=== PATIENT | male | born 1960 | race Caucasian/White ===

== ENCOUNTER → 2016-06-18 | Outpatient (CLI) | payer SELFPAY ==
[2016-06-18 19:07] LABS: ALANINE AMINOTRANSFERASE 36 U/L (21-72); ALKALINE PHOSPHATASE 55 U/L (38-126); ASPARTATE AMINO TRANSFERASE 24 U/L (17-59); BLOOD UREA NITROGEN 18 mg/dL (7-20); CREATININE RESULT 0.77 mg/dL (0.52-1.25)
== END ==
LOC: OD 17:38
PROVIDERS: ATTEND Student in an Organized Health Care Education/Training Program
DX: Z79.1 Long term (current) use of non-steroidal anti-inflammatories (NSAID) (principal); Z79.891 Long term (current) use of opiate analgesic
CPT/HCPCS: 36415; 82565; 82977; 84075; 84450; 84460; 84520

== ENCOUNTER → 2017-04-13 | Outpatient (CLI) | payer SELFPAY ==
--- NOTE | 2017-04-14 06:48 | EKG REPORT ---
SEVERITY:- ABNORMAL ECG - SINUS RHYTHM INCOMPLETE LEFT BUNDLE BRANCH BLOCK LEFT VENTRICULAR HYPERTROPHY : Confirmed by: Gaurav Foote MD 14-Apr-2017 06:47:16
== END ==
LOC: OD 16:57
PROVIDERS: ATTEND Physician Assistant
DX: Z79.891 Long term (current) use of opiate analgesic (principal)
CPT/HCPCS: 36415; 80358; 93005; 93010

== ENCOUNTER → 2018-06-08 | Outpatient (CLI) | payer SELFPAY ==
--- NOTE | 2018-06-09 01:30 | EKG REPORT ---
SEVERITY:- ABNORMAL ECG - SINUS RHYTHM NONSPECIFIC IVCD WITH LAD LVH WITH SECONDARY REPOLARIZATION ABNORMALITY : Confirmed by: Columba Gleason MD 09-Jun-2018 01:30:35
== END ==
LOC: OD 16:51
PROVIDERS: ATTEND Physician Assistant
DX: Z79.891 Long term (current) use of opiate analgesic (principal)
CPT/HCPCS: 36415; 80358; 93005; 93010

== ENCOUNTER 2018-11-21 08:08 | Inpatient (IN) | payer SELFPAY ==
[2018-11-21] MEDS ORDERED: IPRATROPIUM/ALBUTEROL 0.5-2.5 MG/3 ML AMPUL NEB ONE (08:45)
[2018-11-21] MEDS ORDERED: METHYLPREDNISOLONE INJ 125 MG/2 ML SDV IV ONE (08:45)
[2018-11-21] MEDS ORDERED: MAGNESIUM SULFATE/D5W 1 GM/100 ML RTUPB IV ONE ×2 (08:45)
[2018-11-21] MEDS ORDERED: CLONIDINE HCL 0.1 MG TABLET PO ONE (08:46)
--- NOTE | 2018-11-21 08:49 | ER Document Report ---
ED General - General Chief Complaint: Breathing Difficulty Stated Complaint: DIFFICULTY BREATHING TRAVEL OUTSIDE OF THE [place] IN LAST 30 DAYS: No - HPI Notes: Patient is a 58-year-old male with history of tobacco abuse who presents complaining of feeling short of breath and having chest heaviness constantly for the past 3 weeks. Patient states that does not matter if he was sitting or walking. He otherwise has been able to eat and drink without difficulty. He is urinating normally and having normal bowel movements. He does not have any inhalers or other medications at home that he takes daily. Patient has been aware that his blood pressure has been a little bit high, but he is not on any medicines for it. Patient has noticed some more swelling to his right leg than his left leg, but usually does have some swelling in his legs bilaterally. Denies any prolonged immobilization, distance travel, recent surgery/trauma, personal cancer history, hormone use, or previous DVT/PE. Denies any headache, fever, neck pain, URI, sore throat, palpitations, syncope, cough, abdominal pain, nausea/vomiting/diarrhea, urinary retention, dysuria, hematuria, back pain, or rash. - Related Data Allergies/Adverse Reactions: No Known Allergies Allergy (Verified 11/21/18 08:13) Past Medical History - Social History Smoking Status: Current Every Day Smoker Chew tobacco use (# tins/day): No Frequency of alcohol use: Occasional Drug Abuse: None Family History: Reviewed & Not Pertinent Patient has suicidal ideation: No Patient has homicidal ideation: No Renal/ Medical History: Denies: Hx Peritoneal Dialysis Review of Systems - Review of Systems -: Yes All other systems reviewed and negative Physical Exam - Vital signs Vitals: Temp Pulse Resp BP Pulse Ox 97.4 F 98 20 191/108 H 100 11/21/18 08:12 11/21/18 08:12 11/21/18 08:12 11/21/18 08:12 11/21/18 08:12 - Notes Notes: PHYSICAL EXAMINATION: GENERAL: Well-appearing, well-nourished and in no acute distress. HEAD: Atraumatic, normocephalic. EYES: Pupils equal round and reactive to light, extraocular movements intact, sclera anicteric, conjunctiva are normal. ENT: Nares patent and without discharge. oropharynx clear without exudates. No tonsilar hypertrophy or erythema. Moist mucous membranes. NECK: Normal range of motion, supple without lymphadenopathy LUNGS: wheezing b/l, no retractions HEART: Regular rate and rhythm without murmurs, rubs, gallops. ABDOMEN: Soft, nontender, nondistended abdomen. No guarding, no rebound. Normal bowel sounds present. No CVA tenderness bilaterally. Musculoskeletal: FROM to passive/active. Strength 5+/5. Extremities: 1-2+ pitting edema RLE, trace to 1+ LLE. Peripheral pulses 2+. Capillary refill less than 3 seconds. NEUROLOGICAL: Normal speech, normal gait. PSYCH: Normal mood, normal affect. SKIN: Warm, Dry, normal turgor, no rashes or lesions noted. Course - Re-evaluation Re-evalutation: 11/21/18 10:[address] Jauregui: We will obtain an ABG. Doppler being performed now. He is showing acute CHF with pulm vasc congestion and elevated BNP. We will place him on a nitro drip and place on Bipap. Pt was already given Lasix 20mg IV and breathing treatments as well. 11/21/18 11:44 Doppler negative. ABG resulted. Will call hospitalist for admission. 11/21/18 11:[address] Carlos who will accept pt and come eval the patient to help determine best location to admit to. - Vital Signs Vital signs: Temp Pulse Resp BP Pulse Ox 97.5 F 98 19 171/104 H 99 11/21/18 10:01 11/21/18 08:12 11/21/18 14:01 11/21/18 14:01 11/21/18 14:01 - Laboratory Result Diagrams: 11/21/18 09:40 11/21/18 09:40 Laboratory results interpreted by me: 11/21/18 11/21/18 11/21/18 09:40 09:40 09:40 RBC 3.99 L Hgb 12.7 L RDW 14.1 H Basophils % 2.3 H D-Dimer 1.08 H ABG pH ABG HCO3 ABG Total CO2 NT-Pro-B Natriuret Pep 5250 H 11/21/18 11:30 RBC Hgb RDW Basophils % D-Dimer ABG pH 7.47 H ABG HCO3 28.4 H ABG Total CO2 29.6 H NT-Pro-B Natriuret Pep Discharge - Discharge Clinical Impression: CHF exacerbation Qualifiers: Heart failure type: unspecified Qualified Code(s): I50.9 - Heart failure, unspecified Condition: Stable Disposition: ADMITTED INPATIENT Admitting Provider: Dr. Carlos Unit Admitted: [facility]
--- NOTE | 2018-11-21 09:10 | RADIOLOGY REPORT (SQ) ---
EXAM DESCRIPTION: CHEST SINGLE VIEW COMPLETED DATE/TIME: 11/21/2018 9:02 am REASON FOR STUDY: SOB COMPARISON: None. EXAM PARAMETERS: NUMBER OF VIEWS: One view. TECHNIQUE: Single frontal radiographic view of the chest acquired. RADIATION DOSE: NA LIMITATIONS: None. FINDINGS: LUNGS AND PLEURA: Basilar opacities. Vikas B-lines. MEDIASTINUM AND HILAR STRUCTURES: No masses. Contour normal. HEART AND VASCULAR STRUCTURES: Heart enlarged. BONES: No acute findings. HARDWARE: None in the chest. OTHER: No other significant finding. IMPRESSION: Congestive failure with interstitial pulmonary edema. TECHNICAL DOCUMENTATION: JOB ID: [id number] [employer]- All Rights Reserved Reading location - IP/workstation name: [email or web address]
[2018-11-21] MEDS ORDERED: FUROSEMIDE INJ/PF 20 MG/2 ML SDV IV ONE (09:18)
[2018-11-21 09:48] LABS: ABSOLUTE BASOPHILS # (AUTO) 0.1 10^3/uL (0.0-0.2); ABSOLUTE EOSINOPHILS # (AUTO) 0.1 10^3/uL (0.0-0.6); ABSOLUTE LYMPHOCYTES (AUTO) 1.1 10^3/uL (0.5-4.7); ABSOLUTE MONOCYTES (AUTO) 0.4 10^3/uL (0.1-1.4); ABSOLUTE NEUT (AUTO) 3.5 10^3/uL (1.7-8.2); BASOPHILS % (AUTO) 2.3 % (0-2); EOSINOPHILS % (AUTO) 1.8 % (0-6); HEMOGLOBIN 12.7 g/dL (13.5-17.0); LYMPHOCYTES % (AUTO) 21.5 % (13-45); MEAN CORPUSCULAR HEMOGLOBIN 31.7 pg (27.0-33.4); MEAN CORPUSCULAR HGB CONC 33.3 g/dL (32.0-36.0); MEAN CORPUSCULAR VOLUME 95 fl (80-97); MONOCYTES % (AUTO) 6.9 % (3-13); PLATELET COUNT 189 10^3/uL (150-450); RED BLOOD COUNT 3.99 10^6/uL (4.35-5.55); RED CELL DISTRIBUTION WIDTH 14.1 % (11.5-14.0); SEGMENTED NEUTROPHILS % (AUTO) 67.5 % (42-78); TOTAL CELLS COUNTED % (AUTO) 100 %; WHITE BLOOD COUNT 5.2 10^3/uL (4.0-10.5)
[2018-11-21 09:52] LABS: INTERNATIONAL RATION (INR) 1.06; PROTHROMBIN TIME 13.8 SEC (11.4-15.4)
[2018-11-21 10:07] LABS: ALBUMIN 3.8 g/dL (3.5-5.0); ALKALINE PHOSPHATASE 107 U/L (38-126); ANION GAP 6 (5-19); ASPARTATE AMINO TRANSFERASE 34 U/L (17-59); BILIRUBIN,DIRECT 0.2 mg/dL (0.0-0.4); BILIRUBIN,TOTAL 0.6 mg/dL (0.2-1.3); BLOOD UREA NITROGEN 11 mg/dL (7-20); CALCIUM 9.1 mg/dL (8.4-10.2); CARBON DIOXIDE 30 mmol/L (22-30); CHLORIDE 102 mmol/L (98-107); GLUCOSE 96 mg/dL (75-110); POTASSIUM 4.1 mmol/L (3.6-5.0); TOTAL PROTEIN 6.5 g/dL (6.3-8.2)
[2018-11-21 10:21] LABS: TROPONIN I 0.057 ng/mL
[2018-11-21] MEDS ORDERED: NITROGLYCERIN/D5W 50 MG/250 ML RTUINJ IV PRN (10:51)
[2018-11-21 11:42] LABS: ARTERIAL BLOOD BASE EXCESS 4.4 mmol/L; ARTERIAL BLOOD FIO2 ROOM AIR; ARTERIAL BLOOD H2CO3 1.21 mmol/L (1.05-1.35); ARTERIAL BLOOD HCO3 28.4 mmol/L (20-24); ARTERIAL BLOOD O2 SATURATION 96.6 % (94-98); ARTERIAL BLOOD PCO2 40.1 mmHg (35-45); ARTERIAL BLOOD PH 7.47 (7.35-7.45); ARTERIAL BLOOD PO2 81.7 mmHg (80-100); ARTERIAL BLOOD TOTAL CO2 29.6 mmol/L (23-27)
--- NOTE | 2018-11-21 11:42 | EKG REPORT ---
SEVERITY:- ABNORMAL ECG - SINUS RHYTHM NONSPECIFIC IVCD WITH LAD LVH WITH SECONDARY REPOLARIZATION ABNORMALITY : Confirmed by: Usha Peacock 21-Nov-2018 11:40:49
[2018-11-21] MEDS ORDERED: ACETAMINOPHEN 325 MG TABLET PO PRN (13:24)
[2018-11-21] MEDS ORDERED: ONDANSETRON HCL INJ/PF 4 MG/2 ML SDV IV PRN (13:24)
[2018-11-21] MEDS ORDERED: LEVALBUTEROL HCL NEB 1.25 MG/3 ML AMPUL NEB PRN (13:24)
[2018-11-21] MEDS ORDERED: HYDRALAZINE HCL INJ/PF 20 MG/1 ML SDV IV PRN (13:24)
--- NOTE | 2018-11-21 13:55 | XCELERA REPORT ---
[address] [place] [facility] [address] Lower Extremity Venous Evaluation Procedure: Color flow and duplex imaging of the veins of the right lower extremity as well as the left Common Femoral vein. Right Sided Venous Evaluation Normal vessel filling wall to wall, compression and augmentation as well as Colour flow down to the infrageniculate veins. Left Sided Venous Evaluation The left common femoral vein is fully compressible. Spontaneous and phasic flow is present in the left common femoral vein. Interpretation Summary No duplex evidence of DVT or obstruction in the right lower extremity nor in the left Common Femoral vein. Name: UBALDO ZAMORA Felipe Age: 58 yrs Gender: Male : 1960 Patient Status: Emergency Patient Location: ER Study Date: 11/21/2018 11:01 AM Reason For Study: Rt LE edema Ordering Physician: INGRID QUINTANILLA Performed By: Mary Bailey : INGRID QUINTANILLA > Vineet Morales
[2018-11-21] MEDS: METOPROLOL TARTRATE 25 MG TABLET PO SCH ×2 (14:25→22:02)
[2018-11-21] MEDS: HEPARIN SOD (PORCINE) 5,000 UNIT/ML 1 ML VIAL SUBCUT SCH ×2 (14:28→22:01)
[2018-11-21] MEDS ORDERED: FUROSEMIDE INJ/PF 40 MG/4 ML SDV IV SCH (14:53)
--- NOTE | 2018-11-21 15:00 | PDOC H&P ---
History of Present Illness Admission Date/PCP: None Patient complains of: Shortness of breath History of Present Illness: UBALDO ZAMORA is a 58 year old male no diagnosed past medical history who presented to the ER complaining of shortness of breath for the last 3 weeks which has been progressively worsening. Patient states that it started with initially having shortness of breath with exertion while he was working but then gradually developed to shortness of breath while he is at rest. States that at nighttime he can even lay flat because it feels like he is drowning. States that he has to stand up or sit up on the bed so he can sleep. States that for the last week he has been sitting up on his bed propped up so he can sleep. States that also when he hangs his legs down he gets swelling of the feet. States that it was worse this morning but better now as he has it up on the bed. He denies chest pain, abdominal pain, nausea/vomiting, dizziness, blurry vision or lightheadedness. States that this morning he woke up really early not feeling well and just having progressive shortness of breath and then decided to drive to the hospital to have his shortness of breath evaluated. States currently he is on methadone and oxycodone only. States that he takes it because of his chronic back pain-states that he takes 20 mg of methadone 3 times a day and 20 mg of oxycodone 4 times a day. He tells me that he has not seen a doctor in the last 10 years. States that for the last 9 months he has checked his blood pressure on his own and it has been in the 170s or higher but he has not followed up with the doctor. States that he is tried to take care of it himself by taking [id number]-jzcgudf supplements-he does not know the names of it. He also admits to smoking 2 packs/day for over 40 years. He also states that he drinks wine at night because someone told him that it is good for the heart. He denies any illicit drug use. Past Medical History Medical History: None - None that he knows of Social History Information Source: Patient Lives with: Spouse/Significant other Smoking Status: Current Every Day Smoker - Advance Directive Resuscitation Status: Full Code Surrogate healthcare decision maker:: -Lupe Cohen Family History Family History: Reviewed & Not Pertinent, CAD - Sister had an NM at the age of 50s Parental Family History Reviewed: Yes Children Family History Reviewed: Unknown Sibling(s) Family History Reviewed.: Yes Medication/Allergy Home Medications: Methadone HCl [Dolophine 10 Mg Tablet] 20 mg PO TID 11/21/18 Oxycodone HCl 20 mg PO QID 11/21/18 Allergies/Adverse Reactions: No Known Allergies Allergy (Verified 11/21/18 08:13) Review of Systems All systems: reviewed and no additional remarkable complaints except as stated Constitutional: ABSENT: chills, fever(s) Nose, Mouth, and Throat: ABSENT: sore throat Cardiovascular: PRESENT: edema Gastrointestinal: ABSENT: abdominal pain Genitourinary: ABSENT: dysuria Physical Exam Vital Signs: Temp Pulse Resp BP Pulse Ox 97.5 F 98 11 L 164/102 H 96 11/21/18 10:01 11/21/18 08:12 11/21/18 11:11 11/21/18 11:11 11/21/18 11:11 Intake & Output 11/20/18 11/21/18 11/22/18 06:59 06:59 06:59 Intake Total 100 Output Total 1355 Balance -1255 Weight 169 lb 12.095 oz General appearance: PRESENT: no acute distress Head exam: PRESENT: atraumatic, normocephalic Eye exam: PRESENT: EOMI. ABSENT: scleral icterus Ear exam: PRESENT: normal external ear exam Mouth exam: PRESENT: moist Neck exam: ABSENT: tracheal deviation Respiratory exam: PRESENT: clear to auscultation johann, symmetrical Cardiovascular exam: PRESENT: +S1, +S2 Pulses: PRESENT: +1 pedal pulses bilateral GI/Abdominal exam: PRESENT: normal bowel sounds, soft. ABSENT: tenderness Extremities exam: PRESENT: pedal edema, +1 edema - b/l LE edema Neurological exam: PRESENT: alert, awake, oriented to person, oriented to place, oriented to time, CN II-XII grossly intact Skin exam: PRESENT: dry, warm Results Laboratory Results: 11/21/18 09:40 11/21/18 09:40 11/21/18 11/21/18 11/21/18 09:40 09:40 11:30 WBC 5.2 RBC 3.99 L Hgb 12.7 L Hct 38.0 MCV 95 MCH 31.7 MCHC 33.3 RDW 14.1 H Plt Count 189 Seg Neutrophils % 67.5 Lymphocytes % 21.5 Monocytes % 6.9 Eosinophils % 1.8 Basophils % 2.3 H Absolute Neutrophils 3.5 Absolute Lymphocytes 1.1 Absolute Monocytes 0.4 Absolute Eosinophils 0.1 Absolute Basophils 0.1 Carbonic Acid 1.21 HCO3/H2CO3 Ratio 23:1 ABG pH 7.47 H ABG pCO2 40.1 ABG pO2 81.7 ABG HCO3 28.4 H ABG O2 Saturation 96.6 ABG Base Excess 4.4 FiO2 ROOM AIR Sodium 138.1 Potassium 4.1 Chloride 102 Carbon Dioxide 30 Anion Gap 6 BUN 11 Creatinine 0.76 Est GFR ( Amer) > 60 Est GFR (Non-Af Amer) > 60 Glucose 96 Calcium 9.1 Total Bilirubin 0.6 AST 34 Alkaline Phosphatase 107 Total Protein 6.5 Albumin 3.8 11/21/18 09:40 Troponin I 0.057 NT-Pro-B Natriuret Pep 5250 H Impressions: Chest X-Ray 11/21/18 08:43 IMPRESSION: Congestive failure with interstitial pulmonary edema. Status: Image reviewed by me Assessment and Plan - Diagnosis (1) New onset of congestive heart failure Is this a current diagnosis for this admission?: Yes (2) Hypertensive urgency Is this a current diagnosis for this admission?: Yes (3) Tobacco abuse Is this a current diagnosis for this admission?: Yes (4) Elevated BP without diagnosis of hypertension Is this a current diagnosis for this admission?: Yes (5) Elevated troponin Is this a current diagnosis for this admission?: Yes - Time Time Spent with patient: 35 or more minutes - Plan Summary Plan Summary: 58-year-old male with past medical history of just chronic pain who presented to the ED complaining of shortness of breath for 3 weeks was found to have new onset CHF and hypertensive urgency. New onset CHF-chest x-ray shows pulmonary edema, elevated BNP, lower extremity edema, orthopnea-most likely patient has new onset CHF with no prior history-we will order an echocardiogram to evaluate his heart function. He is Lasix keenan so we will try him on 20 mg IV twice daily. He did get a small dose of 20 mg IV Lasix in the ED. Monitor I's and O's and daily weights. In the ED he did get duplex of lower extremity to rule out DVT and it was negative. Due to his shortness of breath I will go ahead and draw a d-dimer to rule out PE. If it is positive then will consider CTA chest. Hypertensive urgency-upon arrival his blood pressure systolic was greater than 180 and diastolic greater than 120-started on nitroglycerin drip-we will continue per protocol, start on metoprolol 12-1/2 mg and hydralazine IV as needed. He also told me that he has checked his blood pressure at home for the last 9 months or more and it has been greater than 170 systolic but he has not followed up with anybody. [id number]-dzz plan above. Check lipid panel, TSH and A1c. Elevated troponin-most likely secondary to his hypertensive urgency and CHF-most likely demand mismatch-we will trend-no changes on EKG noted. Tobacco abuse-2 pack/day for more than 40 years history-most likely he has COPD- counseled him on cessation. Chronic pain-currently he is on methadone and oxycodone I am not sure why he is getting this from-we will continue with his methadone and oxycodone-med rec has not been completed by pharmacy we will restart his medicine once ready.. Disposition-admit to IMCU on nitroglycerin drip-most likely can be discharged home when his blood pressure and CHF has been addressed
--- NOTE | 2018-11-21 15:59 | ADVANCED CARE ---
- Diagnosis (1) New onset of congestive heart failure Diagnosis Current: Yes (2) Hypertensive urgency Diagnosis Current: Yes (3) Tobacco abuse Diagnosis Current: Yes (4) Elevated BP without diagnosis of hypertension Diagnosis Current: Yes (5) Elevated troponin Diagnosis Current: Yes (6) Chronic back pain Diagnosis Current: Yes Resuscitation Status: Full Code Discussion: Spoke with patient at bedside regarding all his multiple comorbidities as stated above. Discussed about CODE STATUS-full versus partial versus DNR. I explained to patient what they between-I even went over different scenarios and given his options what he would like to choose. After further discussion about different scenarios and options he decided that he would like to be a full CODE STATUS. He also tells me that if something should happen then his -Lupe Cohen- would be the surrogate decision maker. I answered all his questions and explained everything thoroughly. Time Spent: >17 minutes
[2018-11-21] MEDS: FUROSEMIDE INJ/PF 20 MG/2 ML SDV IV SCH (17:05)
[2018-11-21] MEDS: DOCUSATE SODIUM 100 MG CAPSULE PO SCH (17:05)
[2018-11-21] MEDS ORDERED: OXYCODONE HCL IR 5 MG TABLET PO ONE (19:00)
[2018-11-21] MEDS ORDERED: NICOTINE 21 MG/24 HR PATCH.TD24 TD ONE (19:15)
[2018-11-21] MEDS: FAMOTIDINE 20 MG TABLET PO SCH (22:01)
[2018-11-21] MEDS: METHADONE HCL 10 MG TABLET PO SCH (22:01)
[2018-11-22] MEDS: OXYCODONE HCL IR 5 MG TABLET PO SCH ×4 (00:07→17:43)
[2018-11-22 04:26] LABS: ANION GAP 7 (5-19); BLOOD UREA NITROGEN 19 mg/dL (7-20); CARBON DIOXIDE 31 mmol/L (22-30); CHLORIDE 100 mmol/L (98-107); CHOLESTEROL 150.85 mg/dL (0-200); GLUCOSE 114 mg/dL (75-110); TRIGLYCERIDES 50 mg/dL (<150)
[2018-11-22 04:34] LABS: ABSOLUTE MONOCYTES (AUTO) 0.4 10^3/uL (0.1-1.4); ABSOLUTE NEUT (AUTO) 4.1 10^3/uL (1.7-8.2); BASOPHILS % (AUTO) 0.6 % (0-2); HEMATOCRIT 40.6 % (37.9-51.0); HEMOGLOBIN 13.6 g/dL (13.5-17.0); LYMPHOCYTES % (AUTO) 17.7 % (13-45); MEAN CORPUSCULAR HEMOGLOBIN 31.8 pg (27.0-33.4); MEAN CORPUSCULAR HGB CONC 33.5 g/dL (32.0-36.0); MEAN CORPUSCULAR VOLUME 95 fl (80-97); MONOCYTES % (AUTO) 7.6 % (3-13); PLATELET COUNT 209 10^3/uL (150-450); RED BLOOD COUNT 4.26 10^6/uL (4.35-5.55); RED CELL DISTRIBUTION WIDTH 14.3 % (11.5-14.0); SEGMENTED NEUTROPHILS % (AUTO) 74.1 % (42-78); TOTAL CELLS COUNTED % (AUTO) 100 %; WHITE BLOOD COUNT 5.5 10^3/uL (4.0-10.5)
[2018-11-22 04:37] LABS: DIRECT LDL 100 mg/dL (<100)
[2018-11-22] MEDS: METHADONE HCL 10 MG TABLET PO SCH ×3 (05:24→21:52)
[2018-11-22] MEDS: FUROSEMIDE INJ/PF 20 MG/2 ML SDV IV SCH (05:24)
[2018-11-22] MEDS: HEPARIN SOD (PORCINE) 5,000 UNIT/ML 1 ML VIAL SUBCUT SCH ×3 (05:25→21:52)
--- NOTE | 2018-11-22 07:01 | EKG REPORT ---
SEVERITY:- ABNORMAL ECG - SINUS RHYTHM LEFT ANTERIOR FASCICULAR BLOCK PROBABLE LEFT VENTRICULAR HYPERTROPHY : Confirmed by: Usha Peacock 22-Nov-2018 07:00:41
[2018-11-22] MEDS ORDERED: AMLODIPINE BESYLATE 5 MG TABLET PO SCH (10:00)
[2018-11-22] MEDS: AMLODIPINE BESYLATE 5 MG TABLET PO SCH (11:01)
[2018-11-22] MEDS: NICOTINE 21 MG/24 HR PATCH.TD24 TD SCH (11:02)
[2018-11-22] MEDS: METOPROLOL TARTRATE 25 MG TABLET PO SCH ×2 (11:02→21:53)
[2018-11-22] MEDS: FAMOTIDINE 20 MG TABLET PO SCH ×2 (11:02→21:52)
[2018-11-22] MEDS: DOCUSATE SODIUM 100 MG CAPSULE PO SCH ×2 (11:02→17:44)
--- NOTE | 2018-11-22 16:02 | PDOC PROGRESS REPORT ---
Subjective Progress Note for:: 11/22/18 - imcu Subjective:: Seen on rounds this morning. He was sitting on the chair having breakfast. He tells me that he is feeling fine. We discussed again about his blood pressure a nd the fact that he needs to be on medicine. We also discussed about quitting tobacco and he states that he understands and he is not tried. Nurses in the room with me. He denies any chest pain, shortness of breath, abdominal pain, nausea/vomiting or dizziness. Reason For Visit: HYPERTENSIVE URGENCY Physical Exam Vital Signs: Temp Pulse Resp BP Pulse Ox 97.4 F 73 16 118/81 100 11/22/18 11:30 11/22/18 14:00 11/22/18 11:30 11/22/18 11:30 11/22/18 11:30 Intake & Output 11/21/18 11/22/18 11/23/18 06:59 06:59 06:59 Intake Total 398 232 Output Total 4055 0 Balance -3657 232 Weight 140 lb 3.424 oz General appearance: PRESENT: no acute distress Head exam: PRESENT: atraumatic, normocephalic Eye exam: PRESENT: EOMI. ABSENT: scleral icterus Ear exam: PRESENT: normal external ear exam Mouth exam: PRESENT: moist Neck exam: ABSENT: tracheal deviation Respiratory exam: PRESENT: clear to auscultation johann, symmetrical Cardiovascular exam: PRESENT: +S1, +S2 GI/Abdominal exam: PRESENT: normal bowel sounds, soft. ABSENT: tenderness Extremities exam: PRESENT: pedal edema - trace Neurological exam: PRESENT: alert, awake, oriented to person, oriented to place, oriented to time, CN II-XII grossly intact Skin exam: PRESENT: dry, warm Results Laboratory Results: 11/22/18 03:59 11/22/18 03:59 11/22/18 11/22/18 11/22/18 03:59 03:59 03:59 WBC 5.5 RBC 4.26 L Hgb 13.6 Hct 40.6 MCV 95 MCH 31.8 MCHC 33.5 RDW 14.3 H Plt Count 209 Seg Neutrophils % 74.1 Lymphocytes % 17.7 Monocytes % 7.6 Eosinophils % 0.0 Basophils % 0.6 Absolute Neutrophils 4.1 Absolute Lymphocytes 1.0 Absolute Monocytes 0.4 Absolute Eosinophils 0.0 Absolute Basophils 0.0 Sodium 138.2 Potassium 4.0 Chloride 100 Carbon Dioxide 31 H Anion Gap 7 BUN 19 Creatinine 0.82 Est GFR ( Amer) > 60 Est GFR (Non-Af Amer) > 60 Glucose 114 H Calcium 9.0 Magnesium 1.9 Triglycerides 50 Cholesterol 150.85 LDL Cholesterol Direct 100 VLDL Cholesterol 10.0 HDL Cholesterol 60 TSH 0.92 11/21/18 11/21/18 11/21/18 09:40 15:20 21:45 Troponin I 0.057 0.059 0.051 NT-Pro-B Natriuret Pep 5250 H 11/22/18 03:59 Troponin I 0.067 NT-Pro-B Natriuret Pep Impressions: Chest X-Ray 11/21/18 08:43 IMPRESSION: Congestive failure with interstitial pulmonary edema. Assessment and Plan - Diagnosis (1) New onset of congestive heart failure Is this a current diagnosis for this admission?: Yes (2) Hypertensive urgency Is this a current diagnosis for this admission?: Yes (3) Tobacco abuse Is this a current diagnosis for this admission?: Yes (4) Elevated BP without diagnosis of hypertension Is this a current diagnosis for this admission?: Yes (5) Elevated troponin Is this a current diagnosis for this admission?: Yes - Plan Summary Plan Summary: 58-year-old male with past medical history of just chronic pain who presented to the ED complaining of shortness of breath for 3 weeks was found to have new onset CHF and hypertensive urgency. New onset CHF-chest x-ray shows pulmonary edema, elevated BNP, lower extremity edema, orthopnea-most likely patient has new onset CHF with no prior history- echocardiogram is pending. I will cut back his Lasix to 40 mg daily from tomorrow. I did draw a d-dimer on him yesterday and it was 1.08. Given the fact that he is feeling better clinically and he has urine output of greater other than 3.5 L I think this is more congestive heart failure than any pulmonary embolism. My clinical suspicion for PE is low as he is improving. Continue monitor I's and O's and daily weights Hypertensive urgency-this morning he was still on the nitroglycerin drip at 10- spoke with nursing about turning it down-he was added metoprolol 12-1/2 twice daily and this morning I have also added Norvasc 5 mg daily. Vliewtxrxdas-[id number]-obj plan above. lipid panel, TSH and A1c came back all within normal limits Elevated troponin-most likely secondary to his hypertensive urgency and CHF-most likely demand mismatch-no EKG changes-troponin was 0.067 after trending 3 times- he has no complaints of chest pain and his shortness of breath has improved significantly. Echocardiogram is pending. I do not think this is cardiac and most likely just a demand mismatch. Tobacco abuse-2 pack/day for more than 40 years history-most likely he has COPD- counseled him on cessation. Chronic pain-currently he is on methadone and oxycodone, we will continue with his methadone and oxycodone
[2018-11-23] MEDS: OXYCODONE HCL IR 5 MG TABLET PO SCH ×4 (00:45→18:50)
[2018-11-23] MEDS: METHADONE HCL 10 MG TABLET PO SCH ×3 (05:18→21:45)
[2018-11-23] MEDS: HEPARIN SOD (PORCINE) 5,000 UNIT/ML 1 ML VIAL SUBCUT SCH ×3 (05:19→21:45)
--- NOTE | 2018-11-23 08:33 | RADIOLOGY REPORT (SQ) ---
EXAM DESCRIPTION: CHEST SINGLE VIEW COMPLETED DATE/TIME: 11/23/2018 8:11 am REASON FOR STUDY: CHF follow up COMPARISON: 2018 NUMBER OF VIEWS: One view. TECHNIQUE: Single frontal radiographic view of the chest acquired. LIMITATIONS: None. FINDINGS: LUNGS AND PLEURA: Aeration is improved bilaterally. MEDIASTINUM AND HILAR STRUCTURES: No masses. Contour normal. HEART AND VASCULAR STRUCTURES: Heart remains enlarged with mild central vascular prominence. Mild in terstitial edema remains but is significantly improved. BONES: No acute findings. HARDWARE: None in the chest. OTHER: No other significant finding. IMPRESSION: Cardiomegaly and mild interstitial edema improved from prior study. TECHNICAL DOCUMENTATION: JOB ID: [id number] [employer]- All Rights Reserved Reading location - IP/workstation name: [email or web address]
--- NOTE | 2018-11-23 08:40 | Progress Note Acknowledgement ---
Progress Note Acknowledgement Progess Note Acknowledgement: I, the undersigned member of the medical staff with appropriate privileges and with supervisory authority over [Popeye Laureano], a dependent practice allied health professional, acknowledge that I have reviewed the progress notes entered on this patient, and in my professional judgment believe that the assessment made and/or any care evidenced was appropriate
--- NOTE | 2018-11-23 08:44 | PDOC PROGRESS REPORT ---
Subjective Progress Note for:: 11/23/18 Subjective:: November 23, 2018-no complaints this a.m. Reason For Visit: HYPERTENSIVE URGENCY Physical Exam Vital Signs: Temp Pulse Resp BP Pulse Ox 97.6 F 67 16 128/90 H 97 11/23/18 03:58 11/23/18 07:47 11/23/18 07:47 11/23/18 03:58 11/23/18 07:47 Intake & Output 11/22/18 11/23/18 11/24/18 06:59 06:59 06:59 Intake Total 398 898 Output Total 4055 775 Balance -3657 123 Weight 63.6 kg 63.8 kg General appearance: PRESENT: no acute distress, well-developed, well-nourished Head exam: PRESENT: atraumatic, normocephalic Eye exam: PRESENT: conjunctiva pink, EOMI, PERRLA. ABSENT: scleral icterus Ear exam: PRESENT: normal external ear exam Mouth exam: PRESENT: moist, tongue midline Neck exam: ABSENT: carotid bruit, JVD, lymphadenopathy, thyromegaly Respiratory exam: PRESENT: clear to auscultation johann. ABSENT: rales, rhonchi, wheezes Cardiovascular exam: PRESENT: RRR. ABSENT: diastolic murmur, rubs, systolic murmur Pulses: PRESENT: normal dorsalis pedis pul Vascular exam: PRESENT: normal capillary refill GI/Abdominal exam: PRESENT: normal bowel sounds, soft. ABSENT: distended, guarding, mass, organolmegaly, rebound, tenderness Rectal exam: PRESENT: deferred Extremities exam: PRESENT: full ROM. ABSENT: calf tenderness, clubbing, pedal edema Neurological exam: PRESENT: alert, awake, oriented to person, oriented to place, oriented to time, oriented to situation, CN II-XII grossly intact. ABSENT: motor sensory deficit Psychiatric exam: PRESENT: appropriate affect, normal mood. ABSENT: homicidal ideation, suicidal ideation Skin exam: PRESENT: dry, intact, warm. ABSENT: cyanosis, rash Results Laboratory Results: 11/22/18 03:59 11/22/18 03:59 11/21/18 11/21/18 11/21/18 09:40 15:20 21:45 Troponin I 0.057 0.059 0.051 NT-Pro-B Natriuret Pep 5250 H 11/22/18 03:59 Troponin I 0.067 NT-Pro-B Natriuret Pep Impressions: Chest X-Ray 11/23/18 06:00 IMPRESSION: Cardiomegaly and mild interstitial edema improved from prior study. Assessment and Plan - Diagnosis (1) New onset of congestive heart failure Is this a current diagnosis for this admission?: Yes Plan: November 23, 2018-patient stable at this time. Awaiting echocardiogram results. Patient continues on Lasix 40 mill grams p.o. daily. Await echocardiogram c truman to follow I's and O's. (2) Hypertensive urgency Is this a current diagnosis for this admission?: Yes Plan: November 23, 2018-much improved after diuresis. Await echocardiogram treat congestive heart failure appropriately. Continue current medications for blood pressure. (3) Elevated troponin Is this a current diagnosis for this admission?: Yes Plan: November 23, 2018-most likely related to congestive heart failure continue to follow (4) Chronic back pain Is this a current diagnosis for this admission?: Yes Plan: November 23, 2018-patient states pain medication working adequate this time. Continue current therapy. - Time Time Spent with patient: 15-24 minutes - Inpatient Certification Based on my medical assessment, after consideration of the patient's comorbidities, presenting symptoms, or acuity I expect that the services needed warrant INPATIENT care.: Yes I certify that my determination is in accordance with my understanding of Medicare's requirements for reasonable and necessary INPATIENT services [42 CFR 412.3e].: Yes Medical Necessity: Other - Awaiting echocardiogram
[2018-11-23] MEDS: FAMOTIDINE 20 MG TABLET PO SCH ×2 (12:18→21:45)
[2018-11-23] MEDS: AMLODIPINE BESYLATE 5 MG TABLET PO SCH (12:18)
[2018-11-23] MEDS: METOPROLOL TARTRATE 25 MG TABLET PO SCH ×2 (12:19→21:46)
[2018-11-23] MEDS: NICOTINE 21 MG/24 HR PATCH.TD24 TD SCH (12:19)
[2018-11-23] MEDS: FUROSEMIDE 40 MG TABLET PO SCH (12:20)
[2018-11-23] MEDS: DOCUSATE SODIUM 100 MG CAPSULE PO SCH ×2 (12:20→18:50)
--- NOTE | 2018-11-23 18:09 | XCELERA REPORT ---
[address] [address] Transthoracic Echocardiogram Report Name: UBALDO ZAMORA Age: 58 yrs Gender: Male : 1960 Patient Status: Inpatient Patient Location: [address] [place], [place] [address] Study Date: 11/22/2018 02:41 PM Height: 69 in Weight: 139 lb BSA: 1.8 m2 Procedure: A two-dimensional transthoracic echocardiogram with color flow and Doppler was performed. Study Quality: Good. Reason For Study: new onset CHF History: CHF. Ordering Physician: SAMANTHA KLEIN Performed By: Mary Bailey Interpretation Summary CHF There is normal left ventricular wall thickness. LV EF is Lesss than 20% Left ventricular systolic function is severely reduced. There is severe global hypokinesis of the left ventricle. There is no thrombus. There is no ventricular septal defect visualized. The right ventricle is mild to moderately dilated. The right ventricular systolic function is mild to moderately reduced. The right atrium is mildly dilated. The left atrium is mildly dilated. The interatrial septum is intact with no evidence for an atrial septal defect. There is no Doppler evidence for an interatrial shunt There is mild to moderate mitral annular calcification. There is no evidence of mitral valve prolapse. There is no vegetation seen on the mitral valve. There is no mitral valve stenosis. There is a moderate amount of mitral regurgitation There is no aortic valvular vegetation. There is aortic sclerosis without aortic stenosis. There is no LVOT obstruction. There is a mild amount of aortic regurgitation There is no tricuspid stenosis. There is a moderate to severe amount of tricuspid regurgitation Yhere is at least moderate pulmonary hypertensionThe least RVSP is 52 mm of Hg , with the least RA mean of 20. There is no pulmonic valvular stenosis. There is a trace amount of pulmonic regurgitation The aortic root is normal size. The inferior vena cava appeared dilated and did not change with respiration (RAP > 20 mmHg) There is no pericardial effusion. MMode/2D Measurements & Calculations RVDd: 4.5 cm LVIDd: 6.6 cm FS: 12.4 % Ao root diam: 3.1 cm IVSd: 0.90 cm LVIDs: 5.8 cm EDV(Teich): LVPWd: 0.89 cm 222.6 ml Ao root area: ESV(Teich): 7.4 cm2 164.5 ml LA dimension: EF(Teich): 26.1 % 4.0 cm LVLd ap4: 9.6 cm SV(MOD-sp4): EDV(MOD-sp4): 68.0 ml 198.0 ml LVLs ap4: 8.5 cm ESV(MOD-sp4): 130.0 ml EF(MOD-sp4): 34.3 % Doppler Measurements & Calculations MV E max arsenio: MV P1/2t max arsenio: Ao V2 max: AI max arsenio: 85.4 cm/sec 85.0 cm/sec 132.0 cm/sec 382.5 cm/sec MV A max arsenio: MV P1/2t: 63.4 msec Ao max PG: AI max P.5 mmHg 24.7 cm/sec MVA(P1/2t): 3.5 cm2 7.0 mmHg AI dec slope: MV E/A: 3.5 MV dec slope: 211.6 cm/sec2 AI P1/2t: 529.3 msec 392.6 cm/sec2 MV dec time: 0.21 sec LV V1 max PG: PA V2 max: TR max arsenio: AV P1/2t-pr_phl: 3.2 mmHg 57.3 cm/sec 282.2 cm/sec 529.3 msec LV V1 max: PA max P.3 mmHg TR max P.1 cm/sec 31.8 mmHg MV P1/2t-pr_phl: 63.4 msec Left Ventricle The left ventricle is moderately to severly dilated. There is normal left ventricular wall thickness. LV EF is Lesss than 20%. Left ventricular systolic function is severely reduced. There is severe global hypokinesis of the left ventricle. There is no thrombus. There is no ventricular septal defect visualized. Right Ventricle The right ventricle is mild to moderately dilated. The right ventricular systolic function is mild to moderately reduced. Atria The right atrium is mildly dilated. The left atrium is mildly dilated. The interatrial septum is intact with no evidence for an atrial septal defect. There is no Doppler evidence for an interatrial shunt. Mitral Valve There is mild to moderate mitral annular calcification. There is no evidence of mitral valve prolapse. There is no vegetation seen on the mitral valve. There is no mitral valve stenosis. There is a moderate amount of mitral regurgitation. Aortic Valve There is no aortic valvular vegetation. There is aortic sclerosis without aortic stenosis. There is no LVOT obstruction. There is a mild amount of aortic regurgitation. Tricuspid Valve There is no tricuspid stenosis. There is a moderate to severe amount of tricuspid regurgitation. Yhere is at least moderate pulmonary hypertensionThe least RVSP is 52 mm of Hg , with the least RA mean of 20. Pulmonic Valve There is no pulmonic valvular stenosis. There is a trace amount of pulmonic regurgitation. Great Vessels The aortic root is normal size. The inferior vena cava appeared dilated and did not change with respiration (RAP > 20 mmHg). Effusions There is no pericardial effusion. : SAMANTHA KLEIN > Columba Gleason
[2018-11-24] MEDS: OXYCODONE HCL IR 5 MG TABLET PO SCH ×2 (00:14→06:10)
[2018-11-24] MEDS ORDERED: OXYCODONE HCL IR 5 MG TABLET PO ONE (01:30)
[2018-11-24 05:51] LABS: ANION GAP 6 (5-19); BLOOD UREA NITROGEN 22 mg/dL (7-20); CALCIUM 8.8 mg/dL (8.4-10.2); CARBON DIOXIDE 29 mmol/L (22-30); CHLORIDE 101 mmol/L (98-107); GLUCOSE 76 mg/dL (75-110); POTASSIUM 4.1 mmol/L (3.6-5.0)
[2018-11-24 05:55] LABS: HEMATOCRIT 39.2 % (37.9-51.0); MEAN CORPUSCULAR HEMOGLOBIN 31.9 pg (27.0-33.4); MEAN CORPUSCULAR HGB CONC 33.3 g/dL (32.0-36.0); MEAN CORPUSCULAR VOLUME 96 fl (80-97); PLATELET COUNT 167 10^3/uL (150-450); RED BLOOD COUNT 4.09 10^6/uL (4.35-5.55); RED CELL DISTRIBUTION WIDTH 13.9 % (11.5-14.0); WHITE BLOOD COUNT 5.5 10^3/uL (4.0-10.5)
[2018-11-24] MEDS: METHADONE HCL 10 MG TABLET PO SCH (06:10)
[2018-11-24] MEDS: HEPARIN SOD (PORCINE) 5,000 UNIT/ML 1 ML VIAL SUBCUT SCH (06:10)
--- NOTE | 2018-11-24 08:58 | PDOC DISCHARGE SUMMARY ---
General - Admit/Disc Date/PCP Admission Date/Primary Care Provider: 11/21/18 13:58 Discharge Date: 11/24/18 - Discharge Diagnosis (1) New onset of congestive heart failure Is this a current diagnosis for this admission?: Yes (2) Hypertensive urgency Is this a current diagnosis for this admission?: Yes (3) Elevated troponin Is this a current diagnosis for this admission?: Yes (4) Chronic back pain Is this a current diagnosis for this admission?: Yes - Additional Information Resuscitation Status: Full Code Discharge Diet: Cardiac Discharge Activity: Activity As Tolerated, Balance Activity w/Rest, Weigh Daily Prescriptions: Spironolactone [Aldactone 25 mg Tablet] 12.5 mg PO DAILY #30 Furosemide [Lasix 40 mg Tablet] 40 mg PO DAILY #30 tablet Metoprolol Tartrate [Lopressor 25 mg Tablet] 12.5 mg PO Q12 #60 tablet Lisinopril [Prinivil 2.5 mg Tablet] 2.5 mg PO DAILY #30 tablet Home Medications: Methadone HCl [Dolophine 10 mg Tablet] 20 mg PO TID 11/21/18 Oxycodone HCl 20 mg PO QID 11/21/18 Furosemide [Lasix 40 mg Tablet] 40 mg PO DAILY #30 tablet 11/24/18 Lisinopril [Prinivil 2.5 mg Tablet] 2.5 mg PO DAILY #30 tablet 11/24/18 Metoprolol Tartrate [Lopressor 25 mg Tablet] 12.5 mg PO Q12 #60 tablet 11/24/18 Spironolactone [Aldactone 25 mg Tablet] 12.5 mg PO DAILY #30 11/24/18 History of Present Illness Patient complains of: No complaints this a.m. History of Present Illness: UBALDO ZAMORA is a 58 year old male presented to ER with a 3-week history of in creased shortness of breath Hospital Course Hospital Course: Patient presented to the ER with 3 weeks of progressive increased shortness of breath. Patient states this shortness of breath with exertion while he was working but then gradually developed shortness of breath while he was at rest as well. Patient states he cannot lie flat at night without feeling like he is drowning. Patient also states when he does not prop his legs up he gets swelling of bilateral feet. Patient states it is worse in the morning but denies any chest pain abdominal pain nausea vomiting dizziness blurry vision or lightheadedness with this shortness of breath. Patient states he is currently on methadone and oxycodone only for chronic pain. Patient states that he last saw a doctor approximately 10 years ago states that approximately 9 months ago he checked his blood pressure was on is been in the 170s or higher since. Patient was found to have a new onset systolic congestive heart failure with ejection fraction of 20%. Patient's been discharged on Aldactone, lisinopril, metoprolol and Lasix. Patient will follow with primary care within [address] Gleason. Physical Exam Vital Signs: Temp Pulse Resp BP Pulse Ox 97.7 F 61 18 120/82 94 11/24/18 03:46 11/24/18 07:00 11/24/18 03:46 11/24/18 03:46 11/24/18 03:46 Intake & Output 11/23/18 11/24/18 11/25/18 06:59 06:59 06:59 Intake Total 898 1582 Output Total 775 2425 Balance 123 -843 Weight 63.8 kg 64 kg General appearance: PRESENT: no acute distress, well-developed, well-nourished Head exam: PRESENT: atraumatic, normocephalic Eye exam: PRESENT: conjunctiva pink, EOMI, PERRLA. ABSENT: scleral icterus Ear exam: PRESENT: normal external ear exam Mouth exam: PRESENT: moist, tongue midline Neck exam: ABSENT: carotid bruit, JVD, lymphadenopathy, thyromegaly Respiratory exam: PRESENT: clear to auscultation johann. ABSENT: rales, rhonchi, wheezes Cardiovascular exam: PRESENT: RRR. ABSENT: diastolic murmur, rubs, systolic murmur Pulses: PRESENT: normal dorsalis pedis pul Vascular exam: PRESENT: normal capillary refill GI/Abdominal exam: PRESENT: normal bowel sounds, soft. ABSENT: distended, guarding, mass, organolmegaly, rebound, tenderness Rectal exam: PRESENT: deferred Extremities exam: PRESENT: full ROM. ABSENT: calf tenderness, clubbing, pedal edema Neurological exam: PRESENT: alert, awake, oriented to person, oriented to place, oriented to time, oriented to situation, CN II-XII grossly intact. ABSENT: motor sensory deficit Psychiatric exam: PRESENT: appropriate affect, normal mood. ABSENT: homicidal ideation, suicidal ideation Skin exam: PRESENT: dry, intact, warm. ABSENT: cyanosis, rash Results Laboratory Results: 11/24/18 04:24 11/24/18 04:24 11/24/18 11/24/18 04:24 04:24 WBC 5.5 RBC 4.09 L Hgb 13.0 L Hct 39.2 MCV 96 MCH 31.9 MCHC 33.3 RDW 13.9 Plt Count 167 Sodium 136.0 L Potassium 4.1 Chloride 101 Carbon Dioxide 29 Anion Gap 6 BUN 22 H Creatinine 0.87 Est GFR ( Amer) > 60 Est GFR (Non-Af Amer) > 60 Glucose 76 Calcium 8.8 11/21/18 11/21/18 11/21/18 09:40 15:20 21:45 Troponin I 0.057 0.059 0.051 NT-Pro-B Natriuret Pep 5250 H 11/22/18 03:59 Troponin I 0.067 NT-Pro-B Natriuret Pep Impressions: Chest X-Ray 11/23/18 06:00 IMPRESSION: Cardiomegaly and mild interstitial edema improved from prior study. Qualifiers - * PATIENT BEING DISCHARGED WITH ANY OF THE FOLLOWING DIAGNOSIS: No Acute Heart Failure - Is this a Heart Failure Patient?: Yes Documentation of LVEF assessment?: Yes LVEF < 40%?: Yes-if yes answer questions a through e a) Discharged on ACEI?: Yes b) Discharges on ARB?: No-document contraindications Reason(s) not discharged on ARB: Other - On an RADHA c) Discharged on ARNI?: Yes d) Discharged on evidence-based Beta ambreen(carvedilol, sustained release metoprolol succinate, or bisoprolol)?: Yes e) For LVEF <35%, discharged on Aldosterone antagonist?: Yes 3. Anticoagulant therapy for permanect/persistent/paraoxysmal Afib or Aflutter: N/A Follow-up Appointment scheduled within 7 days?: Yes Plan Time Spent: Greater than 30 Minutes
[2018-11-24] MEDS: METOPROLOL TARTRATE 25 MG TABLET PO SCH (09:39)
[2018-11-24] MEDS: FUROSEMIDE 40 MG TABLET PO SCH (09:39)
[2018-11-24] MEDS: AMLODIPINE BESYLATE 5 MG TABLET PO SCH (09:39)
[2018-11-24] MEDS: FAMOTIDINE 20 MG TABLET PO SCH (09:39)
[2018-11-24] MEDS: NICOTINE 21 MG/24 HR PATCH.TD24 TD SCH (09:41)
[2018-11-24] MEDS: DOCUSATE SODIUM 100 MG CAPSULE PO SCH (09:43)
[2018-11-24 10:41] VITALS: BP 114/81
== END 2018-11-24 11:01 | disposition home or self-care (01) | DRG 293 ==
LOC: ER 08:08 → EH 13:58 → 3N 16:40
PROVIDERS: ADMIT Family Medicine; ATTEND Family Medicine
DX: I11.0 Hypertensive heart disease with heart failure (principal); I50.9 Heart failure, unspecified; I16.0 Hypertensive urgency; R03.0 Elevated blood-pressure reading, without diagnosis of hypertension; G89.29 Other chronic pain; F17.210 Nicotine dependence, cigarettes, uncomplicated
CPT/HCPCS: 36415; 71045; 80048; 80053; 80061; 82803; 82962; 83036; 83735; 83880; 84443; 84484; 85025; 85027; 85379; 85610; 93005; 93010; 93306; 93971; 96365; 96375; 99285; J1644; J1940; J2930; J3475; J3490

== ENCOUNTER → 2019-10-11 | Outpatient (CLI) | payer SELFPAY ==
--- NOTE | 2019-10-11 12:10 | EKG REPORT ---
SEVERITY:- ABNORMAL ECG - SINUS BRADYCARDIA. IVCD, CONSIDER ATYPICAL LBBB NONSPECIFIC ST-T CHANGES, DIFFUSE. : Confirmed by: Gaurav Foote MD 11-Oct-2019 12:09:46
== END ==
LOC: OD 09:37
PROVIDERS: ATTEND Nurse Practitioner Family
DX: Z79.891 Long term (current) use of opiate analgesic (principal)
CPT/HCPCS: 93005; 93010

== ENCOUNTER → 2019-11-30 | Outpatient (CLI) | payer SELFPAY ==
[2019-11-30 09:14] LABS: ALKALINE PHOSPHATASE 59 U/L (38-126); ANION GAP 7 (5-19); ASPARTATE AMINO TRANSFERASE 34 U/L (17-59); BILIRUBIN,DIRECT 0.3 mg/dL (0.0-0.4); BILIRUBIN,TOTAL 0.5 mg/dL (0.2-1.3); BLOOD UREA NITROGEN 11 mg/dL (7-20); CALCIUM 9.1 mg/dL (8.4-10.2); CARBON DIOXIDE 33 mmol/L (22-30); CHLORIDE 98 mmol/L (98-107); CHOLESTEROL 184.99 mg/dL (0-200); GLUCOSE 92 mg/dL (75-110); POTASSIUM 4.2 mmol/L (3.6-5.0); TOTAL PROTEIN 6.7 g/dL (6.3-8.2); TRIGLYCERIDES 112 mg/dL (<150)
[2019-11-30 09:24] LABS: DIRECT LDL 91 mg/dL (<100)
== END ==
LOC: OD 08:07
PROVIDERS: ATTEND Specialist
DX: I42.0 Dilated cardiomyopathy (principal); I10 Essential (primary) hypertension; R94.31 Abnormal electrocardiogram [ECG] [EKG]; G89.4 Chronic pain syndrome; E78.5 Hyperlipidemia, unspecified; R94.30 Abnormal result of cardiovascular function study, unspecified; Z79.899 Other long term (current) drug therapy; F17.210 Nicotine dependence, cigarettes, uncomplicated
CPT/HCPCS: 36415; 80048; 80061; 80076